=== PATIENT | male | born 1995 | race Caucasian/White ===

== ENCOUNTER 2017-12-16 00:59 | Emergency (ER) | payer SELFPAY ==
[~2017-12-16] VITALS: Ht 175.3 cm; Wt 86.1 kg
[2017-12-16 04:30] VITALS: BP 134/87
[2017-12-16] MEDS ORDERED: KETOROLAC 30MG/ML VIAL IM ONE (04:30)
[2017-12-16] MEDS ORDERED: ONDANSETRON 4MG ODT PO ONE (04:30)
[2017-12-16] MEDS ORDERED: AMOXICILLIN/POTASSIUM CLAVULANATE 875/125MG TAB PO ONE (04:30)
== END 2017-12-16 05:00 | disposition home or self-care (01) ==
LOC: ER 00:59
DX: H66.91 Otitis media, unspecified, right ear (principal); I10 Essential (primary) hypertension
CPT/HCPCS: 96372; 99283; J1885; Q0162